=== PATIENT | male | born 1960 | race African-American/Black ===

== ENCOUNTER 2016-08-01 10:01 | Emergency (ER) | payer OTHER ==
[2016-08-01] MEDS ORDERED: NITROGLYCERIN SL PRN (10:06)
[2016-08-01] MEDS ORDERED: ASPIRIN PO STA (10:06)
--- NOTE | 2016-08-01 10:24 | EKG Report ---
Test Performed on : 08/01/2016 10:09:58 AM Test Reason : Chest Pain Blood Pressure : / mmHG Vent. Rate : 101 BPM Atrial Rate : 101 BPM P-R Int : 136 ms QRS Dur : 086 ms QT Int : 332 ms P-R-T Axes : 072 -15 027 degrees QTc Int : 430 ms Sinus tachycardia. with occasional premature ventricular complexes. Possible Left atrial enlargement Anterior infarct (cited on or before 01-AUG-2016) Abnormal ECG When compared with ECG of 01-AUG-2016 10:09, (Unconfirmed) fusion complexes are no longer present Unconfirmed Result
[2016-08-01 10:30] LABS: MANUAL DIFF NEEDED? NO
[2016-08-01] MEDS ORDERED: MORPHINE IV ONE (10:30)
[2016-08-01] MEDS ORDERED: SODIUM CHLORIDE 0.9% INJ ONE (10:30)
[2016-08-01] MEDS ORDERED: LABETALOL IV ONE (10:30)
[2016-08-01] MEDS ORDERED: PHENERGAN IV ONE (10:30)
[2016-08-01 10:37] LABS: BASO% 0.6 % (0.0-0.8); EOS# 0.02 X1000 (0.0-0.7); EOS% 0.2 % (0.0-10.0); HEMATOCRIT 47.2 % (42.0-52.0); HEMOGLOBIN 16.2 g/dL (14.0-18.0); LYMPH# 2.22 X1000 (1.2-3.4); LYMPH% 25.9 % (20.5-51.1); MCH 30.2 PG (27-31); MCHC 34.3 g/dL (33-37); MCV 88.1 FL (81-99); MONO# 0.75 X1000 (0.11-0.59); MONO% 8.7 % (1.7-9.3); MPV 8.5 FL (7.4-10.4); NEUT% 64.6 % (42.2-75.2); PLT 257 X1000 (130-400); RBC 5.36 XMIL (4.7-6.1)
--- NOTE | 2016-08-01 10:37 | PROVIDER DOCUMENTATION ---
HPI-Chest Pain - General Chief Complaint: Chest Pain Stated Complaint: CHEST PAIN Time Seen by Provider: 08/01/16 10:20 Source: patient Allergies/Adverse Reactions: Patient Allergies Allergy/AdvReac Type Severity Reaction Status Date / Time No Known Allergies Allergy Verified 08/01/16 11:14 Home Medications: Home Medication List Medication Instructions Recorded Confirmed Last Taken Type Amlodipine [Norvasc] 10 mg PO DAILY 05/19/13 01/31/16 11/30/14 05:30 History Telmisartan [Micardis] 80 mg PO DAILY 05/19/13 01/31/16 11/30/14 05:30 History Omeprazole 40 mg PO BID #60 capsule. 07/01/14 01/31/16 11/30/14 05:30 Rx Ondansetron HCl [Zofran] 4 mg PO Q4H PRN PRN #0 tablet 07/01/14 01/31/16 Unknown Rx Dicyclomine HCl 10 mg PO 4XDAY 11/23/14 01/31/16 01/31/16 05:45 History Hydrochlorothiazide 12.5 mg PO DAILY 11/23/14 01/31/16 01/31/16 05:45 History Tramadol [Ultram] 1 - 2 tab PO BID 11/23/14 01/31/16 Unknown History Ciprofloxacin [Cipro] 250 mg PO BID #0 tablet 11/30/14 01/31/16 Unknown Rx Hydrocodone/APAP 7.5 mg/325 mg 1 each PO Q6H PRN PRN #0 tablet 11/30/1401/30/16 Rx [[place]-7.5] Tamsulosin [Flomax] 0.4 mg PO QHS #0 capsule 11/30/14 01/31/16 Unknown Rx Hydrocodone/APAP 10 mg/325 mg 1 each PO Q6H PRN PRN #0 tablet 01/31/16 Unknown Rx [[place]-10] ATORVAstatin [Lipitor] 10 mg PO DAILY 08/01/16 08/01/16 08/01/16 History ATORVAstatin [Lipitor] 40 mg PO QHS #30 tablet 08/01/16 Unknown Rx Hydrochlorothiazide 12.5 mg PO DAILY 08/01/16 08/01/16 08/01/16 History Hydrochlorothiazide 12.5 mg PO DAILY #30 tablet 08/01/16 Unknown Rx Labetalol [Trandate] 100 mg PO BID #60 tablet 08/01/16 Unknown Rx - History of Present Illness-CP Nature of Presenting Problem: 55 yo BM with HTN, chol presented to a week ago and was admitted for observation due to CP. He still has CP which hurts when he moves or coughs. He has been out of BP and chol meds for several days. He now has headache, malaise , cough, chills. Location: reports: central Chest Pain Radiation: reports: no radiation Quality of Pain: reports: sharp, stabbing Severity in ED: mild Onset/Duration: last week Timing: still present Context/Activities at Onset: reports: none Modifying Factors: improves with: coughing Associated Symptoms: reports: fatigue, fever/chills, headache, nausea, shortness of breath. denies: back pain, diaphoresis, edema, heartburn, syncope , vomiting Nitro Today/Relief: no nitro taken today Aspirin Treatment Today: provided by ED Prior Chest Pain/Cardiac Workup: reports: other (sounds like work up at ) Similar Symptoms Previously?: Yes Recently Seen Here or By Another Healthcare Provider: Yes (see HPI) Review of Systems - Adult - REVIEW OF SYSTEMS - ADULT Constitutional: reports: chills, fatique. denies: fever Eyes: reports: no symptoms reported Ears, Nose, Mouth & Throat: reports: sinus problem. denies: throat pain Cardiovascular: reports: see HPI, chest pain Respiratory: reports: see HPI, cough, dyspnea on exertion, shortness of breath, wheezing Gastrointestinal: reports: no symptoms reported, nausea. denies: frequent heartburn, vomiting Genitourinary: reports: no symptoms reported Musculoskeletal: reports: muscle aches Integumentary: reports: no symptoms reported Neurological: reports: headache/migraines Psychiatric: reports: no symptoms reported Past History - Adult - PAST MEDICAL HISTORY-ADULT Review of Records: reports: Old Records Reviewed, Nursing Assessment Review, Medications Reviewed, Social history reviewed & non-contributory. 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 negative: lymphadenopathy - RESPIRATORY Respiratory: chest non-tender, lungs clear (slightly decreased in left base, no wheeze) - CARDIOVASCULAR Cardiovascular: normal peripheral pulses, regular rate, rhythm, no edema - CHEST (BREASTS) Chest/Breast: no tenderness. negative: tenderness - GASTROINTESTINAL (ABDOMEN) Abdominal Exam: normal bowel sounds, soft. 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, grossly normal, no motor/sensory deficits - PSYCHIATRIC Psych/Mental Status: normal mood/affect, normal thought content, normal thought process, oriented x 3 Progress - PLAN OF CARE/RESULTS Progress/Plan/Lab Results: Orders Category Date Time Status Cardiac Monitoring DIRECTED Care 08/01/16 10:06 Active Saline Loc NOW Care 08/01/16 10:06 Active CHEST-2 VIEWS [RAD] Stat Exams 08/01/16 10:06 Draft KUB ABDOMEN [RAD] Stat Exams 08/01/16 10:29 Draft CBC WITH ELECTRONIC DIFF [HEME] Stat Lab 08/01/16 10:16 Completed CK PROFILE [SP CHEM] Stat Lab 08/01/16 10:16 Completed COMPREHENSIVE METABOLIC PANEL [CHEM] Stat Lab 08/01/16 10:16 Completed D-DIMER [CHEM] Stat Lab 08/01/16 10:16 Completed INFLUENZA SCREEN A/B Stat Lab 08/01/16 11:07 Completed MAGNESIUM [CHEM] Stat Lab 08/01/16 10:16 Completed PRO B-NATRIURETIC PEPTIDE Stat Lab 08/01/16 10:16 Completed PROTIME WITH INR [COAG] Stat Lab 08/01/16 10:16 Completed PTT [COAG] Stat Lab 08/01/16 10:16 Completed TROPONIN T Stat Lab 08/01/16 10:16 Completed Aspirin Med 08/01/16 10:06 Discontinued 325 mg PO STAT STA LISINOpril [Prinivil] Med 08/01/16 11:40 Discontinued 10 mg PO NOW ONE Labetalol Med 08/01/16 10:30 Discontinued 20 mg IV NOW ONE Morphine Med 08/01/16 10:30 Discontinued 2 mg IV NOW ONE Nitroglycerin Sl [Nitroglycerin] Med 08/01/16 10:06 Active 0.4 mg SL Q5M PRN PRN Promethazine [Phenergan] Med 08/01/16 10:30 Discontinued 12.5 mg IV NOW ONE Sodium Chloride 0.9% Med 08/01/16 10:30 Discontinued 10 ml INJ NOW ONE EKG [EKG] Stat Ther 08/01/16 10:06 Draft Vital Signs Temp Pulse Resp BP Pulse Ox 08/01/16 10:58 96 H 20 175/102 99 08/01/16 10:07 99.0 F 107 H 20 170/96 99 No Known Allergies Allergy (Verified 08/01/16 11:14) Amlodipine [Norvasc] 10 mg PO DAILY 05/19/13 Telmisartan [Micardis] 80 mg PO DAILY 05/19/13 Omeprazole 40 mg PO BID #60 capsule. 07/01/14 Ondansetron HCl [Zofran] 4 mg PO Q4H PRN PRN #0 tablet 07/01/14 Dicyclomine HCl 10 mg PO 4XDAY 11/23/14 Hydrochlorothiazide 12.5 mg PO DAILY 11/23/14 Tramadol [Ultram] 1 - 2 tab PO BID 11/23/14 Ciprofloxacin [Cipro] 250 mg PO BID #0 tablet 11/30/14 Hydrocodone/APAP 7.5 mg/325 mg [[place]-7.5] 1 each PO Q6H PRN PRN #0 tablet 11/30 Tamsulosin [Flomax] 0.4 mg PO QHS #0 capsule 11/30/14 Hydrocodone/APAP 10 mg/325 mg [[place]-10] 1 each PO Q6H PRN PRN #0 tablet ATORVAstatin [Lipitor] 10 mg PO DAILY 08/01/16 Hydrochlorothiazide 12.5 mg PO DAILY 08/01/16 Laboratory 08/01/16 08/01/16 08/01/16 10:16 10:16 10:16 WBC RBC Hgb Hct MCV MCH MCHC RDW Std Deviation Plt Count MPV Immature Gran % (Auto) Neut % (Auto) Lymph % (Auto) [place] % (Auto) Eos % (Auto) Baso % (Auto) Immature Gran # (Auto) Neut # (Auto) Lymph # (Auto) [place] # (Auto) Eos # (Auto) Baso # (Auto) PT 10.9 INR 1.03 PTT (Actin FS) 25.4 D-Dimer Sodium Potassium Chloride Carbon Dioxide Anion Gap BUN Creatinine Estimated GFR/1.73 m2 BUN/Creatinine Ratio Glucose Calculated Osmolality Calcium Magnesium Total Bilirubin AST ALT Alkaline Phosphatase Creatine Kinase Troponin T < 0.010 [id number] Pept 215 H Total Protein Albumin Globulin Albumin/Globulin Ratio 08/01/16 08/01/16 08/01/16 10:16 10:16 10:16 WBC 8.58 RBC 5.36 Hgb 16.2 Hct 47.2 MCV 88.1 MCH 30.2 MCHC 34.3 RDW Std Deviation 13.7 Plt Count 257 MPV 8.5 Immature Gran % (Auto) 0.0 Neut % (Auto) 64.6 Lymph % (Auto) 25.9 [place] % (Auto) 8.7 Eos % (Auto) 0.2 Baso % (Auto) 0.6 Immature Gran # (Auto) 0.00 Neut # (Auto) 5.54 Lymph # (Auto) 2.22 [place] # (Auto) 0.75 H Eos # (Auto) 0.02 Baso # (Auto) 0.05 PT INR PTT (Actin FS) D-Dimer 0.22 Sodium 141 Potassium 3.7 Chloride 102 Carbon Dioxide 26 Anion Gap 13 BUN 8 Creatinine 0.9 Estimated GFR/1.73 m2 > 60 BUN/Creatinine Ratio 9 Glucose 171 H Calculated Osmolality 284 Calcium 8.8 Magnesium 1.9 Total Bilirubin 0.81 AST 13 ALT 16 Alkaline Phosphatase 90 Creatine Kinase 183 Troponin T [id number] Pept Total Protein 7.0 Albumin 4.4 Globulin 2.6 Albumin/Globulin Ratio 1.7 1138 Patient feeling better. BP 169/98 - XRAY 1 XRAY Study: Chest Impression: Normal XRAY Interpretation: normal per rad 2 XRAY Study: Abdomen Impression: Normal XRAY Interpretation: normal per rad Departure - Departure Time of Disposition Order: 12:10 DIAGNOSIS: Elevated blood sugar, Viral syndrome Headache Qualifiers: Headache type: unspecified Headache chronicity pattern: acute headache Intractability: not intractable Qualified Code(s): R51 - Headache HTN (hypertension) Qualifiers: Hypertension type: essential hypertension Qualified Code(s): I10 - Essential ( primary) hypertension Disposition: HOME 01 Certified Medical Emergency: Emergent Condition: Good Additional Instructions: tylenol for any fever or body aches rest Prescriptions: Hydrochlorothiazide 12.5 mg PO DAILY #30 tablet ATORVAstatin [Lipitor] 40 mg PO QHS #30 tablet Labetalol [Trandate] 100 mg PO BID #60 tablet Referrals: Melanie Issa MD [Primary Care Provider] - Instructions: Migraine Headache, [id number]
[2016-08-01 10:50] LABS: AGAP 13; ALBUMIN 4.4 g/dL (3.5-5.0); ALKALINE PHOSPHATASE 90 U/L (32-122); BUN 8 mg/dL (8-22); CALCIUM 8.8 mg/dL (8.8-10.2); CHLORIDE 102 mmol/L (98-107); CK PROFILE 183 U/L (24-204); COSMO 284; GOT 13 U/L (10-34); GPT 16 U/L (10-44); MAGNESIUM 1.9 mg/dL (1.5-2.7); POTASSIUM 3.7 mmol/L (3.5-5.1); SODIUM 141 mmol/L (136-145); TCO2 26 mmol/L (25-35); TOTAL BILIRUBIN 0.81 mg/dL (0.20-1.00)
[2016-08-01 10:53] LABS: INR 1.03; PROTIME 10.9 Seconds (9.2-11.7); PTT 25.4 Seconds (22.0-36.0)
--- NOTE | 2016-08-01 11:28 | Diag Imaging Result Document ---
PROCEDURE NAME: KUB ABDOMEN - 08/01/2016 KUB: FINDINGS: There is a nonspecific bowel gas pattern. There is gas in the distal colon. There is no evidence of organomegaly or mass. Compared to 01/22/2016, there is somewhat more colonic and small bowel gas. IMPRESSION: Nonspecific abdomen.
--- NOTE | 2016-08-01 11:29 | Diag Imaging Result Document ---
PROCEDURE NAME: CHEST-2 VIEWS - 08/01/2016 TWO VIEWS OF THE CHEST: FINDINGS: There is no evidence of acute cardiac or pulmonary disease. Compared to 01/22/2016, there has been no significant change in the appearance of the chest. IMPRESSION: No acute disease.
--- NOTE | 2016-08-01 11:38 | ED EKG INTERP ---
EKG Interpretation - EKG Time of EKG reading by physician:: 10:09 EKG Read and Signed by:: Andrea Del Valle EKG Interpretation (*Must complete 3 of following elements*): Abnormal Rate: 101 Rhythm: sinus tachy w/ occasional premature ventricular complexes [place]: left (atrail enlargment) [place] Interval: normal ST Wave: normal Comments: anterior infarct age undetermined
[2016-08-01] MEDS ORDERED: PRINIVIL PO ONE (11:40)
[2016-08-01 12:25] VITALS: BP 156/93
== END 2016-08-01 12:30 | disposition home or self-care (01) ==
LOC: ED 10:01
DX: I10 Essential (primary) hypertension (principal); R51 Headache; B34.9 Viral infection, unspecified; R73.9 Hyperglycemia, unspecified; R07.9 Chest pain, unspecified; R53.83 Other fatigue; R50.9 Fever, unspecified; R06.02 Shortness of breath; Z79.899 Other long term (current) drug therapy; R05 Cough; R06.09 Other forms of dyspnea; R06.2 Wheezing; M79.1 Myalgia; F17.210 Nicotine dependence, cigarettes, uncomplicated; R94.31 Abnormal electrocardiogram [ECG] [EKG]; Z82.49 Family history of ischemic heart disease and other diseases of the circulatory system
CPT/HCPCS: 71020; 74000; 80053; 82550; 83735; 83880; 84484; 85025; 85379; 85610; 85730; 87804; 93005; J2270; J2550